=== PATIENT | female | born 1995 | race Caucasian/White ===

== ENCOUNTER 2018-06-01 12:16 | Emergency (ER) | payer OTHER ==
[2018-06-01 12:23] VITALS: BP 136/88
--- NOTE | 2018-06-01 12:41 | EDPHY ---
H & P Stated Complaint: cold symptoms, increasing SOB Time Seen by Provider: 06/01/18 12:41 HPI/ROS: HPI: This is a 22-year-old female who presents with Chief Complaint: cold symptoms, increasing SOB Location: Chest Quality: Cough and shortness of breath Duration: 3 days Signs and Symptoms: no fever, no nausea, no vomiting, no diarrhea, no urinary symptoms, no chest pain, + shortness of breath, no wheezing, + cough, no sore throat, no neck stiffness, no joint pain, no swollen glands, no ear pain, no rash Timing: Worsening Severity: Moderate Context: Patient is a student at [employer] originally from [place], [place], presents with complaints of cough that is nonproductive in nature for the last 2 days, fatigue, generalized body ache, runny nose with green discharge, and nasal congestion. Patient reports she has she has a history of asthma but denies any wheezing. Her house mates are sick as well. No recent long distance travel. Takes oral control pills. Modifying Factors: None Comment: ROS: A comprehensive 10 system review of systems is otherwise negative aside from elements mentioned in the history of present illness. MEDICAL/SURGICAL/SOCIAL HISTORY: Medical history: Generally healthy. Does not take any regular medications. Surgical history: Denies Social history: Nonsmoker. Student at [employer]. Family history noncontributory. CONSTITUTIONAL: Ill but nontoxic-appearing young adult white female, awake and alert, no obvious distress HEENT: Atraumatic and normocephalic, PERRL, EOMI. Nares patent; + green rhinorrhea; + nasal congestion. Tympanic membranes clear. Oropharynx clear, no tonsillar hypertrophy, uvula midline, no exudate and moist pink mucosa. Airway patent. No lymphadenopathy. No meningismus. Cardiovascular: Normal S1/S2, regular rate, regular rhythm, without murmur rub or gallop. PULMONARY/CHEST: Symmetrical and nontender. Clear to auscultation bilaterally. Good air movement. No accessory muscle usage. Productive harsh cough noted. ABDOMEN: Soft, nondistended, nontender, no rebound, no guarding, no peritoneal signs, no masses or organomegaly. No CVAT. EXTREMITIES: 2/2 pulses, strength 5/5, no deformities, no clubbing, no cyanosis or edema. NEUROLOGICAL: no focal neuro deficits. GCS 15. SKIN: Warm and dry, no erythema. no rash. Good capillary refill. Source: Patient Exam Limitations: No limitations - Personal History LMP (Females 10-55): 15-21 Days Ago - Medical/Surgical History Hx Asthma: No Hx Chronic Respiratory Disease: No Hx Diabetes: No Hx Cardiac Disease: No Hx Renal Disease: No Hx Cirrhosis: No Hx Alcoholism: No Hx HIV/AIDS: No Hx Splenectomy or Spleen Trauma: No Other PMH: none - Social History Smoking Status: Never smoked Constitutional: Initial Vital Signs Temperature (C) 37 C 06/01/18 12:21 Heart Rate 99 06/01/18 12:21 Respiratory Rate 18 06/01/18 12:21 Blood Pressure 136/88 H 06/01/18 12:21 O2 Sat (%) 97 06/01/18 12:21 O2 Delivery Mode Room Air Allergies/Adverse Reactions: No Known Allergies Allergy (Unverified 06/01/18 12:21) Home Medications: Medication Instructions Recorded Azithromycin [Zithromax] 250 mg PO DAILY #6 tab 06/01/18 Benzonatate [Tessalon Pearles (RX)] 100 mg PO Q6 PRN #15 cap 06/01/18 Control 06/01/18 predniSONE [predniSONE TAPER] 10 mg PO DAILY 6 Days ea 06/01/18 Medical Decision Making ED Course/Re-evaluation: Vital signs reviewed and stable upon arrival. No signs of hypoxia/respiratory distress/wheezing. Patient has a history of asthma but no acute exacerbation. Due to history of sick contacts combined with asthma, will treat with antibiotics, steroid taper, cough suppressant. Wells criteria low for pulmonary embolism. No indication for chest x-ray at this time. This patient was seen under the supervision of my secondary supervising physician. I evaluated care for this patient independently. Discussed this patient with Dr. Melton. Differential Diagnosis: Differential diagnosis includes but is not limited to upper respiratory infection, bronchitis, pneumonia, asthma exacerbation, pulmonary embolism. Departure - Departure Disposition: Home, Routine, Self-Care Clinical Impression: Bronchitis Asthma Qualifiers: Asthma severity: mild Asthma persistence: intermittent Asthma complication type : uncomplicated Qualified Code(s): J45.20 - Mild intermittent asthma, uncomplicated Condition: Good Instructions: Acute Bronchitis (ED), Asthma (ED) Additional Instructions: Rest as much as possible until you are feeling better. Consume a minimum of 8-10 glasses of water or electrolyte fluid replacement drinks that include Gatorade, Powerade, Pedialyte. Take azithromycin as directed. Do not skip a dose. Use Tessalon Perles every 6 hr as needed for cough. Take steroid taper as directed for bronchospasm. Use albuterol inhaler as needed for wheezing. Return to the ER immediately if you experience fevers/chills, shortness of breath, abdominal pain, inability to tolerate oral intake, or any other symptoms that concern you. Referrals: DR ADILENE [Other] - 5-7 days, if not improved Stand Alone Forms: School Excuse Prescriptions: Azithromycin [Zithromax] 250 mg PO DAILY #6 tab Benzonatate [Tessalon Pearles (RX)] 100 mg PO Q6 PRN #15 cap PRN Reason: Cough, Moderate predniSONE [predniSONE TAPER] 10 mg PO DAILY 6 Days ea
== END 2018-06-01 12:54 | disposition home or self-care (01) ==
DX: J20.9 Acute bronchitis, unspecified (principal); J45.20 Mild intermittent asthma, uncomplicated

== ENCOUNTER 2018-07-21 18:13 | Emergency (ER) | payer OTHER ==
[2018-07-21] MEDS ORDERED: NS 1,000 ML IV ONE (19:08)
--- NOTE | 2018-07-21 19:08 | EDPHY ---
General - Diagnostics EKG: I reviewed patient's EKG. See [email or web address] system for interpretation Imaging: Discussed imaging studies w/ call taker Radiologist, I viewed and interpreted images myself - History History Review: I reviewed the patient's medical records Smoking Status: Never smoked Time Seen by Provider: 07/21/18 18:54 Narrative: CHIEF COMPLAINT: Heart skipping beats, Heart sinking HISTORY OF PRESENT ILLNESS: Patient presents per private vehicle with complaints of palpitations, skipping beats and "it feels like my heart is sinking." Symptoms have been present since April. At that time they were very infrequent. She describes it as above and with some discomfort. Worse with intake of caffeine and alcohol. Decreases with relaxation and yoga. Her concern is that over the past 48 hr she has had significantly more and, now constant today symptoms. No position of comfort. No alleviating factors. 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 She has had no formal workup. No previous diagnosis of congestive heart failure, cardiomyopathy, murmur or stenosis. No other associated complaints or modifying factors. REVIEW OF SYSTEMS: 10 systems were reviewed and negative with the exception of the elements mentioned in the history of present illness. PCP: Tonio Rogers SPECIALISTS: Insurance Risk Manager, Dr. Jones PAST MEDICAL HISTORY: Interstitial cystitis, asthma. Does take oral contraceptive with estradiol PAST SURGICAL HISTORY: No surgical history SOCIAL HISTORY: No smoking history. Occasional alcohol use. No drug use. [employer] student. FAMILY HISTORY: Noncontributory EXAMINATION: Vitals: Triage VS reviewed General Appearance: Alert, no distress. Well appearing. Head: normocephalic, atraumatic Eyes: Pupils equal and round, no conjunctival pallor or injection ENT, Mouth: Mucous membranes moist Neck: Normal inspection, supple, non-tender Respiratory: Lungs are clear to auscultation. No wheezing, rhonchi or crackles Cardiovascular: Intermittently tachycardic rate. Regular rhythm. There is a mid systolic murmur. Gastrointestinal: Abdomen is soft and nontender Back: non-tender, no bony abnormalities Neurological: A&O, nonfocal, normal gait Skin: Warm and dry, no rash Extremities: Nontender, no pedal edema Psychiatric: Mildly anxious. DIFFERENTIAL DIAGNOSES: Including but not limited to PE, ACS, mitral valve prolapse, aortic stenosis, PSVT, paroxysmal AFib, malignant dysrhythmia MDM: 7:05 p.m. Intermittent palpitations and shortness of breath with minimal discomfort. Patient is well-appearing and nontoxic. She does very from normal sinus rhythm 2 intermittent tachycardia during my examination. EKG is unremarkable. She does have risk factors for PE including control with estradiol. She has no hypoxemia. No tachypnea. No acute distress. I have ordered cardiac workup including chest x-ray, laboratory studies and TSH. She is not perc negative given her intermittent tachycardia, thus I have ordered D-dimer. I do feel she will also need an echocardiogram as she has are murmur without previous diagnosis of murmur. I discussed with Dr. Olivares. 7:10 p.m. Case discussed with Dr. Pressley. He agrees to Echocardiogram. 8:00 p.m. CBC, chemistry, troponin, D-dimer are all within normal limits. Her urine drug screen is negative. TSH is pending. Echocardiogram pending. I have reviewed her chest x-ray, without radiologist, I do not appreciate any acute findings. 9:00 p.m. TSH was also within normal limits. Magnesium within normal limits. Patient re- evaluated. She is feeling much better. We discussed her negative laboratory studies, negative chest x-ray and EKG. We discussed the pending echocardiogram. I have paged Dr. Pressley to discuss. 9:15 p.m. Case discussed with Dr. Pressley. He agrees with management thus far and recommends no medication, but he would like the patient to be seen in the office this week for monitor placement. He will read the echocardiogram at this time. 9:50 p.m. Echocardiogram has been read as normal. No acute findings. Patient has been re -evaluated. She is feeling well. She would like to go home. Short course of Ativan provided. Follow up with Cardiology this week. We discussed ED precautions for worsening symptoms, any chest pain, lightheadedness, dizziness or syncope. We discussed avoiding all stimulants. She is comfortable this plan. She is discharged home stable condition. EKG interpretation: Dr. Howard Olivares Rate is 90 beats per minute, sinus rhythm. No ischemia conduction delay. SUPERVISION: Patient was independently examined, but I discussed the case with my secondary supervising physician Dr. Olivares CONSULTATION: Cardiology consultation, Dr. Pressley. Echo in emergency department (Joby Francis) Medical Decision Making: I did not see this patient while she was in the emergency department. However her care was discussed with the PA while the patient was in the department. I agree with treatment plan and management (Howard Olivares) - Diagnostics EKG Interpretation: EKG interpreted by me shows normal sinus rhythm normal interval and axis. QRS is normal there is no significant ST elevation or depression. There is no arrhythmia. The rate is 77 (Howard Olivares) Imaging Results: Imaging Impressions Chest X-Ray 07/21/18 19:10 Impression: Normal frontal view of the chest. - Objective Vital Signs: Initial Vital Signs Temperature (C) 98.1 F 07/21/18 18:21 Heart Rate 82 07/21/18 18:21 Respiratory Rate 18 07/21/18 18:21 Blood Pressure 130/83 H 07/21/18 18:21 O2 Sat (%) 99 07/21/18 18:21 O2 Delivery Mode Room Air Allergies/Adverse Reactions: No Known Allergies Allergy (Verified 07/21/18 18:19) Home Medications: Medication Instructions Recorded Control 06/01/18 LORazepam [Ativan] 1 mg PO Q8 PRN #5 tablet 07/21/18 Laboratory Results: Laboratory Results 07/21/18 19:20 07/21/18 19:20 07/21/18 07/21/18 07/21/18 19:24 19:20 19:20 WBC RBC Hgb Hct MCV MCH MCHC RDW Plt Count MPV Neut % (Auto) Lymph % (Auto) Nolan % (Auto) Eos % (Auto) Baso % (Auto) Nucleat RBC Rel Count Absolute Neuts (auto) Absolute Lymphs (auto) Absolute Monos (auto) Absolute Eos (auto) Absolute Basos (auto) Absolute Nucleated RBC Immature Gran % Immature Gran # D-Dimer < 0.27 ug/mLFEU ug/mLFEU (0.00-0.50) Sodium 138 mEq/L mEq/L (135-145) Potassium 3.9 mEq/L mEq/L (3.3-5.0) Chloride 103 mEq/L mEq/L (97-110) Carbon Dioxide 24 mEq/l mEq/l (22-31) Anion Gap 11 mEq/L mEq/L (6-14) BUN 11 mg/dL mg/dL (7-23) Creatinine 0.8 mg/dL mg/dL (0.6-1.0) Estimated GFR > 60 Glucose 89 mg/dL mg/dL (70-100) Calcium 9.6 mg/dL mg/dL (8.5-10.4) Magnesium 1.9 mg/dL mg/dL (1.6-2.3) POC Troponin I 0.00 ng/mL ng/mL (0.00-0.08) TSH 3.170 uIU/mL uIU/mL (0.465-4.680) Urine Opiates Screen Urine Barbiturates Ur Phencyclidine Scrn Ur Amphetamine Screen U Benzodiazepines Scrn Urine Cocaine Screen U Marijuana (THC) Screen 07/21/18 07/21/18 19:20 19:15 WBC 6.49 10^3/uL 10^3/uL (3.80-9.50) RBC 4.51 10^6/uL 10^6/uL (4.18-5.33) Hgb 14.1 g/dL g/dL (12.6-16.3) Hct 42.1 % % (38.0-47.0) MCV 93.3 fL fL (81.5-99.8) MCH 31.3 pg pg (27.9-34.1) MCHC 33.5 g/dL g/dL (32.4-36.7) RDW 12.1 % % (11.5-15.2) Plt Count 284 10^3/uL 10^3/uL (150-400) MPV 9.6 fL fL (8.7-11.7) Neut % (Auto) 57.0 % % (39.3-74.2) Lymph % (Auto) 31.6 % % (15.0-45.0) Nolan % (Auto) 8.3 % % (4.5-13.0) Eos % (Auto) 2.3 % % (0.6-7.6) Baso % (Auto) 0.5 % % (0.3-1.7) Nucleat RBC Rel Count 0.0 % % (0.0-0.2) Absolute Neuts (auto) 3.70 10^3/uL 10^3/uL (1.70-6.50) Absolute Lymphs (auto) 2.05 10^3/uL 10^3/uL (1.00-3.00) Absolute Monos (auto) 0.54 10^3/uL 10^3/uL (0.30-0.80) Absolute Eos (auto) 0.15 10^3/uL 10^3/uL (0.03-0.40) Absolute Basos (auto) 0.03 10^3/uL 10^3/uL (0.02-0.10) Absolute Nucleated RBC 0.00 10^3/uL 10^3/uL (0-0.01) Immature Gran % 0.3 % % (0.0-1.1) Immature Gran # 0.02 10^3/uL 10^3/uL (0.00-0.10) D-Dimer Sodium Potassium Chloride Carbon Dioxide Anion Gap BUN Creatinine Estimated GFR Glucose Calcium Magnesium POC Troponin I TSH Urine Opiates Screen NEGATIVE (NEGATIVE) Urine Barbiturates NEGATIVE (NEGATIVE) Ur Phencyclidine Scrn NEGATIVE (NEGATIVE) Ur Amphetamine Screen NEGATIVE (NEGATIVE) U Benzodiazepines Scrn NEGATIVE (NEGATIVE) Urine Cocaine Screen NEGATIVE (NEGATIVE) U Marijuana (THC) Screen NEGATIVE (NEGATIVE) Medications Given: Discontinued Medications Sodium Chloride (Ns) 1,000 mls @ 0 mls/hr IV EDNOW ONE; Wide Open PRN Reason: Protocol Stop: 07/21/18 19:09 Last Admin: 07/21/18 19:28 Dose: 1,000 mls Lorazepam (Ativan 1 Mg Prepack#4) 1 btl TAKEHOME EDNOW ONE Stop: 07/21/18 21:18 Last Admin: 07/21/18 21:50 Dose: 1 btl Point of Care Test Results: Chemistry 07/21/18 19:24 POC Troponin I 0.00 ng/mL ng/mL (0.00-0.08) Urine Collection Date 07/21/18 Collection Time 19:15 HCG Results Negative Departure - Departure Disposition: Home, Routine, Self-Care Clinical Impression: Intermittent palpitations Condition: Good Instructions: Lorazepam (By mouth), Supraventricular Tachycardia (ED), Heart Palpitations (ED) Additional Instructions: 1. Ativan by mouth every 8 hr as needed for anxiety. Do not mix with alcohol or other medications 2. Contact the on-call lawn maintenance worker as provided for outpatient definitive care 3. ED precautions for return of symptoms, chest pain, shortness of breath, near- syncope or syncope Referrals: PEDROTTY,RAAD [Other] - As per Instructions Raad Pressley MD [Medical Doctor] - As per Instructions Prescriptions: LORazepam [Ativan] 1 mg PO Q8 PRN #5 tablet PRN Reason: Anxiety
[2018-07-21 19:35] LABS: PLATELET COUNT 284 10^3/uL (150-400)
--- NOTE | 2018-07-21 20:37 | CPEKG ---
Test Reason : OPEN Blood Pressure : / mmHG Vent. Rate : 077 BPM Atrial Rate : 075 BPM P-R Int : 130 ms QRS Dur : 086 ms QT Int : 362 ms P-R-T Axes : 018 075 024 degrees QTc Int : 410 ms Sinus rhythm Confirmed by Howard Olivares ([id number]) on 07/21/2018 8:36:53 PM Referred By: Confirmed By:Howard Olivares
[2018-07-21] MEDS ORDERED: LORAZEPAM 1 MG PREPACK#4 BTL TAKEHOME ONE (21:17)
--- NOTE | 2018-07-21 21:36 | ECHO ---
[email or web address] [address] [address] Main: [phone] Fax: [email or web address] Echocardiogram Name: MERT LOPEZ MR#: [id number] Study Date: 07/21/2018 Study Time: 07:58 PM Date of : 1995 Age: 22 year(s) Height: 167.6 cm (66 in.) Weight: 61.24 kg (135 lb.) BSA: 1.69 m2 Gender: Female Examination: Echo Indication: Palpitations Image Quality: Contrast: Requested by: Joby Francis BP: 130 mmHg/90 mmHg Heart Rate: Rhythm: Normal sinus rhythm Indication: Palpitations Procedure Staff Automotive Designer: Tanner Rosales RDCS Reading Physician: Dickson Pressley MD Requesting Provider: Conclusions: Normal size left ventricle. No LV hypertrophy. Normal global systolic LV function. EF is 61 %. Normal size right ventricle. The mitral valve is normal in appearance and function. The aortic valve is normal in appearance and function. The tricuspid valve is normal in appearance and function. The pulmonic valve is normal in appearance and function. Measurements: Chambers Valvular Assessment AV/MV Valvular Assessment TV/PV Normal Normal Normal Name Value Range Name Value Range Name Value Range Ao Temi (MM): 2.7 cm (2.2 cm-3.7 AV Vmax: 1.29 m/s (1 m/s-1.7 PV Vmax: 0.87 m/s (0.6 m/s-0.9 cm) m/s) m/s) IVSd (2D): 0.8 cm (0.6 cm-1.1 AV maxP mmHg ( - ) PV PGmax: 3 mmHg ( - ) cm) LVOT Vmax: 0.98 m/s (0.7 m/s-1.1 LVDd (2D): 4.9 cm (3.9 cm-5.3 m/s) cm) MV E Vmax: 0.90 m/s ( - ) LVDs (2D): 3.3 cm (2.1 cm-4 MV A Vmax: 0.54 m/s ( - ) cm) MV E/A: 1.67 ( - ) LVPWd (2D): 0.9 cm ( - ) LVEF (2D): 61 (>=54 %) Continued Measurements: Chambers Valvular Assessment AV/MV Name Value Name Value Patient: MERT LOPEZ Study Date: 07/21/2018 Page 1 of 2 07:58 PM LADs: 3.2 cm MV E/E' Septal: 8.20 LADs Lon.5 cm MV E/E' Lateral: 5.50 LA Area: 12.3 cm2 LA Volume: 31 ml LA Volume Index: 18.3 ml/m2 Findings: Left Ventricle: Normal size left ventricle. No LV hypertrophy. Normal global systolic LV function. EF is 61 %. No regional wall motion abnormality. Normal diastolic LV function. Right Ventricle: Normal size right ventricle. Left Atrium: The left atrium is normal in size. Right Atrium: The right atrium is normal in size. Mitral Valve: The mitral valve is normal in appearance and function. Aortic Valve: The aortic valve is normal in appearance and function. Tricuspid Valve: The tricuspid valve is normal in appearance and function. Pulmonic Valve: The pulmonic valve is normal in appearance and function. Aorta: The aorta is normal. Pericardium: No pericardial effusion. (No Signature Object) Patient: MERT LOPEZ Study Date: 07/21/2018 Page 2 of 2 07:58 PM [id number]
[2018-07-21 21:56] VITALS: BP 126/78
== END 2018-07-21 21:56 | disposition home or self-care (01) ==
DX: R00.2 Palpitations (principal); J45.909 Unspecified asthma, uncomplicated
CPT/HCPCS: 80305; 84484-PO

== ENCOUNTER 2018-11-09 20:52 | Emergency (ER) | payer OTHER ==
[2018-11-09] MEDS ORDERED: IPRATROPIUM/ALBUTEROL 3 ML DEYVIAL ONE (21:10)
[2018-11-09] MEDS ORDERED: predniSONE 20 MG TAB PO ONE (21:11)
[2018-11-09] MEDS ORDERED: IPRATROPIUM/ALBUTEROL 3 ML DEYVIAL IH ONE (21:11)
--- NOTE | 2018-11-09 21:11 | EDPHY ---
H & P Stated Complaint: SOB, CP, cough Time Seen by Provider: 11/09/18 21:11 HPI/ROS: HPI: This is a 23-year-old female who presents with Chief Complaint: Shortness of breath, chest pain, cough Location: Chest Quality: Shortness of breath, chest pain, cough Duration: 2 days Signs and Symptoms: no shortness of breath at rest, + shortness of breath on exertion, + nonproductive cough, no chest pain, no palpitations, no lower extremity edema, + wheezing wheezing, no orthopnea, no paroxysmal nocturnal dyspnea, no fever, no injury/trauma, no hemoptysis, no carpal pedal spasms Timing: Worsening Severity: Moderate Context: Patient is a student at [employer], nontobacco user, presents with 2 day history of shortness of breath, wheezing, nonproductive cough and chest pain coughing spells. She reports that she has been using her ProAir inhaler with minimal improvement. She denies any fever, neck stiffness, sore throat, fatigue, body aches. No recent long distance travel. Denies lower extremity edema, calf pain. She reports that she has chest discomfort with coughing spells. Takes oral control pills. Modifying Factors: Albuterol inhaler Comment: ROS: A comprehensive 10 system review of systems is otherwise negative aside from elements mentioned in the history of present illness. MEDICAL/SURGICAL/SOCIAL HISTORY: Medical history: Asthma Surgical history: Denies Social history: Student at [employer]. Denies tobacco use. CONSTITUTIONAL: Well-developed, well-nourished, young adult white female, awake and alert, no obvious distress HEENT: Atraumatic and normocephalic, PERRL, EOMI. Nares patent; no rhinorrhea; no nasal mucosal edema. Tympanic membranes clear. Oropharynx clear, no exudate and moist pink mucosa. Airway patent. No lymphadenopathy. No meningismus. Cardiovascular: Normal S1/S2, regular rate, regular rhythm, without murmur rub or gallop. PULMONARY/CHEST: Symmetrical and nontender. Clear to auscultation bilaterally. Good air movement. No accessory muscle usage. ABDOMEN: Soft, nondistended, nontender, no rebound, no guarding, no peritoneal signs, no masses or organomegaly. No CVAT. EXTREMITIES: 2/2 pulses, strength 5/5, no deformities, no clubbing, no cyanosis or edema. Negative Homans sign. NEUROLOGICAL: no focal neuro deficits. GCS 15. SKIN: Warm and dry, no erythema. no rash. Good capillary refill. Source: Patient Exam Limitations: No limitations - Personal History LMP (Females 10-55): Now Current Tetanus/Diphtheria Vaccine: Yes Current Tetanus Diphtheria and Acellular Pertussis (TDAP): Yes - Medical/Surgical History Hx Asthma: Yes Hx Chronic Respiratory Disease: No Hx Diabetes: No Hx Cardiac Disease: No Hx Renal Disease: No Hx Cirrhosis: No Hx Alcoholism: No Hx HIV/AIDS: No Hx Splenectomy or Spleen Trauma: No Other PMH: asthma - Social History Smoking Status: Never smoked Constitutional: Initial Vital Signs Temperature (C) 36.6 C 11/09/18 21:06 Heart Rate 87 11/09/18 21:06 Respiratory Rate 16 11/09/18 21:06 Blood Pressure 145/99 H 11/09/18 21:06 O2 Sat (%) 97 11/09/18 21:06 O2 Delivery Mode Room Air Allergies/Adverse Reactions: No Known Allergies Allergy (Verified 11/09/18 21:04) Home Medications: Medication Instructions Recorded Control 06/01/18 Albuterol 11/09/18 predniSONE 40 mg PO DAILY 4 Days tab 11/09/18 Medical Decision Making - Diagnostics Imaging Results: Imaging Impressions Chest X-Ray 11/09/18 21:11 Impression: Normal chest x-ray. ED Course/Re-evaluation: Vital signs reviewed and are stable. No hypoxia, respiratory distress. Wells criteria is low for pulmonary embolism. Will give DuoNeb, Xopenex, prednisone 60 mg and chest x-ray ordered 2199: Reassessed patient. Reports improved aeration. Chest x-ray my read shows no opacity, no effusion, no pneumothorax, no widened mediastinum. 2244: Reassessed patient who reports moderate relief of symptoms. Vital signs stable. Will give a prescription for prednisone burst with student health clinic follow- up. This patient was seen under the supervision of my secondary supervising physician. I evaluated care for this patient independently. Discussed this patient with Dr. Castellanos who did not see the patient. Differential Diagnosis: Shortness of breath including but not limited to pulmonary infectious process, COPD, asthma, pulmonary embolus and congestive heart failure. - Data Points Medications Given: Discontinued Medications Albuterol/Ipratropium (Duoneb) 3 ml IH EDNOW ONE Stop: 11/09/18 21:12 Last Admin: 11/09/18 21:13 Dose: 3 ml Levalbuterol (Xopenex 1.25mg Neb) 1.25 mg IH EDNOW ONE Stop: 11/09/18 21:58 Last Admin: 11/09/18 22:06 Dose: 1.25 mg Prednisone (Prednisone) 60 mg PO EDNOW ONE Stop: 11/09/18 21:12 Last Admin: 11/09/18 21:13 Dose: 60 mg Departure - Departure Disposition: Home, Routine, Self-Care Clinical Impression: Asthma exacerbation Qualifiers: Asthma severity: mild Asthma persistence: intermittent Qualified Code(s): J45.21 - Mild intermittent asthma with (acute) exacerbation Condition: Good Instructions: Asthma (ED), Bronchospasm (ED) Additional Instructions: Rest as much as possible until you are feeling better. Consume a minimum of 8-10 glasses of water or electrolyte fluid replacement drinks that include Gatorade, Powerade, Pedialyte. Use albuterol inhaler every 4 hr as needed for shortness of breath, wheezing. Take steroids as directed for the next 4 days. If symptoms do not resolve in the next 3 days, follow-up with the student health clinic. Referrals: [facility] [Clinic] - As per Instructions Stand Alone Forms: School Excuse Prescriptions: predniSONE 40 mg PO DAILY 4 Days tab
[2018-11-09] MEDS ORDERED: predniSONE 20 MG TAB ONE (21:12)
[2018-11-09] MEDS ORDERED: LEVALBUTEROL 1.25 MG/3 ML DEYVIAL IH ONE (21:57)
[2018-11-09 22:55] VITALS: BP 132/75
== END 2018-11-09 22:54 | disposition home or self-care (01) ==
DX: J45.21 Mild intermittent asthma with (acute) exacerbation (principal)
CPT/HCPCS: J7512